=== PATIENT | female | born 1995 | race African-American/Black ===

== ENCOUNTER 2020-09-11 19:47 | Emergency (ER) | payer OTHER ==
[~2020-09-11] VITALS: Ht 165.1 cm; Wt 96.6 kg
[2020-09-11 19:51] VITALS: BP 134/73
[2020-09-11] MEDS ORDERED: SINGULAIR 10 MG10 MG PO (19:56)
[2020-09-11] MEDS ORDERED: NEXPLANON68 MG SQ (19:56)
[2020-09-11] MEDS ORDERED: IBUPROFEN 600600 M1 PO (20:01)
[2020-09-11] MEDS ORDERED: BACTRIM DS TAB1 EACH PO (20:01)
== END 2020-09-11 20:06 | disposition home or self-care (01) ==
LOC: ER 19:47
DX: L60.0 Ingrowing nail (principal); Z79.899 Other long term (current) drug therapy